=== PATIENT | male | born 1975 | race Caucasian/White ===

== ENCOUNTER 2017-12-10 16:15 | Emergency (ER) | payer SELFPAY ==
[~2017-12-10] VITALS: Ht 190.5 cm; Wt 108.9 kg
[~2017-12-10 16:15] MED LIST: A/B OTIC 54 MG/15 ML OT; AMOXIL 875 MG875 MG PO; FLONASE120 SPRAY/ INH
--- NOTE | 2017-12-10 17:45 | RADIOLOGY REPORT ---
EXAMINATION: XR CHEST CLINICAL INFORMATION: Right-sided chest pain. Assess for cardiopulmonary process. COMPARISON: Chest x-ray and right RIBS 10/22/2014. TECHNIQUE: Frontal and lateral views of the chest were obtained. FINDINGS: The lung alonzo are well expanded and appear clear bilaterally. The cardiac silhouette is normal. There are no pleural effusions or pneumothorax. The central pulmonary vasculature is normal. The hilar regions appear normal. There are mild degenerative changes in the thoracic spine. IMPRESSION: 1. There are no acute cardiopulmonary findings. 2. There are no acute osseous findings.
[2017-12-10] MEDS ORDERED: PRILOSEC OTC20 M1 PO (18:03)
--- NOTE | 2017-12-10 18:30 | ED GENERAL ADULT ---
History of Present Illness General Chief Complaint: General Adult Stated Complaint: DIZZY DOESNT FEEL RIGHT Source: patient, family Exam Limitations: no limitations Vital Signs & Intake/Output Vital Signs & Intake/Output Vital Signs Date Time Temp Pulse Resp B/P B/P Pulse O2 O2 Flow FiO2 Mean Ox Delivery Rate 12/11 2011 78 18 173/97 99 Room Air 12/10 1823 98.8 74 18 170/110 98 12/10 1817 84 168/109 12/10 1625 97.2 88 18 162/132 98 Room Air Allergies Coded Allergies: NO KNOWN ALLERGIES (05/28/12) Reconcile Medications Omeprazole Magnesium (Prilosec Otc) 20 MG TABLET. 1 TAB PO DAILY GI ( Reported) Triage Note: 42M REPORTS DIZZINESS AND "FEELING OFF" SINCE THIS WEEKEND, WORST SINCE FRIDAY AFTER WEEKEND OF MODERATE HOLIDAY DRINKING. FEELS FAINT, HAZY, FOGGY AND VERBALIZES DIFFICULTY CONCENTRATING. ON FRIDAY HE FELT LIKE HE ALMOST PASSED OUT, DENIES CP/SOB/PALP OR DIAPHORESIS/N/V/D. ALSO REPORTS INTERMITTENT RIGHT RIB PAIN AND LEFT NECK AREA DISCOMFORT IN LEFT SIDE OF NECK. FOCAL NEUROS INTACT AND 5/5 STRENGTH TO ALL EXTREMITIES. ABLE TO FOLLOW COMMANDS, DENIES HEADACHE. PERRLA AND EOM INTACT. +HYPERTENSIVE URGENCY AND FERNANDEZ ROPER NOTIFIED. DENIES NUMBNESS/PARASTHESIAS Triage Nurses Notes Reviewed? yes HPI: 42-year-old male presents with nonspecific symptoms of "feeling off". He reports having 7-8 beers on Friday and Friday and a couple of beers on Friday and Friday due to the long weekend. He reports he woke up one day and felt like the room was spinning and then resolved spontaneously. He reports just feeling off since then. He denies any chest pain or shortness of breath. I reviewed the triage note and I spoke with the nurse about patient's pain in the ribs and neck. He states that on Friday he bent down and felt a sharp pain in the rib for a second. He does not have any pain now and does not have any chest pain. He denies any neck pain to me. He thinks he has a swollen lymph node rather than any specific pain. He denies cough, phlegm, sore throat. Patient reports she has been previously diagnosed and treated for hypertension. He reports that his blood pressure normalized he had been taken off his blood pressure medication. He denies any chest pain, shortness of breath, exertional symptoms, diaphoresis, headache. Past History Travel History Traveled to [place] past 21 day No Medical History Any Pertinent Medical History? none Neurological: NONE EENT: NONE Cardiovascular: hypertension Respiratory: NONE Gastrointestinal: GERD Hepatic: NONE Renal: NONE Musculoskeletal: NONE Psychiatric: NONE Endocrine: NONE Blood Disorders: NONE Cancer(s): NONE PREP MANAGER/Reproductive: NONE Tetanus Vaccine: 01/05/11 Surgical History Surgical History: non-contributory Psychosocial History What is your primary language [place] Tobacco Use: Current Daily Use Daily Tobacco Use Amount/Type: => 5 Cigarettes daily Family History Hx Contributory? No Review of Systems Review of Systems Constitutional: Denies: chills, diaphoresis, fever. EENTM: Denies: blurred vision, double vision, visual changes. Respiratory: Denies: cough, hemoptysis, orthopnea. Cardiovascular: Denies: chest pain, edema, orthopena. GI: Denies: abdominal pain, bloating, constipation. Musculoskeletal: Denies: back pain, gout. Skin: Denies: cysts, change in skin color, change in hair/nails. Neurological/Psychological: Denies: anxiety, ataxia, cognitive dysfunction. Hematologic/Endocrine: Denies: bruising, bleeding. Physical Exam Physical Exam General Appearance: well developed/nourished, no apparent distress, alert, awake Head: atraumatic, normal appearance Eyes: Bilateral: PERRL, EOMI. Ears, Nose, Throat: normal pharynx, normal ENT inspection Neck: normal inspection, supple Respiratory: normal breath sounds, chest non-tender Cardiovascular: regular rate/rhythm Gastrointestinal: normal bowel sounds, soft, non-tender, no organomegaly Back: normal inspection Extremities: normal inspection, normal capillary refill Neurologic/Psych: no motor/sensory deficits, awake, alert, oriented x 3, normal gait Skin: intact Comments: Patient thinks he had swollen lymph node in the left side of the neck. No lymphadenopathy on my physical exam. No airway compromise. Normal throat. Perfect neurological exam. Perfect cerebellar exam. Perfect focus. Core Measures ACS in differential dx? No CVA/TIA Diagnosis: No Sepsis Present: No Sepsis Focused Exam Completed? No Progress Differential Diagnoses . Plan of Care: Orders Procedure Date/time Status TROPONIN LEVEL 12/10 1856 Complete MAGNESIUM 12/10 1856 Complete COMPREHENSIVE METABOLIC PANEL 12/10 1856 Complete CBC WITHOUT DIFFERENTIAL 12/10 1856 Complete URINE DRUG SCREEN FOR ER ONLY 12/10 162 Complete URINALYSIS 12/10 162 Complete MISTAKE 12/10 162 Active EKG 12/10 161 Active Laboratory Tests 12/10/17 1940: Urine Opiates Screen < 100, Methadone Screen < 40, Barbiturate Screen < 60, Ur Phencyclidine Scrn < 6.00, Amphetamines Screen < 100, U Benzodiazepines Scrn < 85, Urine Cocaine Screen < 50, Urine Cannabis Screen > 80.00 H, Urine Color YEL , Urine Clarity CLEAR, Urine pH 6.0, Ur Specific [place] 1.025, Urine Protein NEG, Urine Ketones NEG, Urine Nitrite NEG, Urine Bilirubin NEG, Urine Urobilinogen 1.0, Ur Leukocyte Esterase NEG, Ur Microscopic EXAM NOT REQUIRED, Urine Hemoglobin NEG, Urine Glucose NEG 12/10/17 1721: Anion Gap 9, Estimated GFR > 60, BUN/Creatinine Ratio 17.5, Glucose 84, Calcium 9.1, Magnesium 2.0, Total Bilirubin 0.7, AST 61 H, ALT 76 H, Alkaline Phosphatase 57, Troponin I < 0.01, Total Protein 7.6, Albumin 4.0, Globulin 3.6, Albumin/Globulin Ratio 1.1, CBC w Diff NO MAN DIFF REQ, RBC 5.39, MCV 92.8, MCH 31.5 H, MCHC 33.9, RDW 12.7, MPV 9.2, Gran % 65.5, Lymphocytes % 23.7, Monocytes % 9.1, Eosinophils % 1.2, Basophils % 0.5, Absolute Granulocytes 4.9, Absolute Lymphocytes 1.8, Absolute Monocytes 0.7 H, Absolute Eosinophils 0.1, Absolute Basophils 0 12/10/17 1636: Sodium Cancelled, Potassium Cancelled, Chloride Cancelled, Carbon Dioxide Cancelled, Anion Gap Cancelled, BUN Cancelled, Creatinine Cancelled, Estimated GFR Cancelled, BUN/Creatinine Ratio Cancelled, Glucose Cancelled, Calcium Cancelled, Magnesium Cancelled, Total Bilirubin Cancelled, AST Cancelled, ALT Cancelled, Alkaline Phosphatase Cancelled, Troponin I Cancelled, Total Protein Cancelled, Albumin Cancelled, Globulin Cancelled, Albumin/Globulin Ratio Cancelled, CBC w Diff Cancelled, WBC Cancelled, RBC Cancelled, Hgb Cancelled, Hct Cancelled, MCV Cancelled, MCH Cancelled, MCHC Cancelled, RDW Cancelled, Plt Count Cancelled, MPV Cancelled, Gran % Cancelled, Lymphocytes % Cancelled, Monocytes % Cancelled, Eosinophils % Cancelled, Basophils % Cancelled, Absolute Granulocytes Cancelled, Absolute Lymphocytes Cancelled, Absolute Monocytes Cancelled, Absolute Eosinophils Cancelled, Absolute Basophils Cancelled Initial ED EKG: see below Comments: EKG: Sinus, rate of 85, normal axis, normal intervals, no acute ST-T changes. Compared to the EKG from October 22, 2014: No significant change. Physical exam is quite benign. We will do a detailed evaluation. No significant change in EKG. Will check troponin. We will check CT scan of the brain. Patient has a history of hypertension we will treat him with oral antihypertensives. 2055 perfect repeat neurological exam. Patient continues to do well. Slight elevation of LFTs, likely to the patient's "partying" over the weekend, he will have his PCP recheck his labs. The patient is otherwise continued to do well. No vertigo at this time. Plan will be hydration at home, monitor blood pressure, diet changes, stop smoking and follow-up with PCP. Patient is comfortable and verbalizes understanding. Patient counseled against smoking for more than 3 minutes. "Chest pain" atypical sharp pain a few days ago, one short episode, PERC negative. Presentation consistent with PE or ACS. Blood pressure: No signs of hypertensive urgency or emergency, we will slowly bring it down. Patient is already improving. He will be started on antihypertensives and followed up with PCP. Departure Departure Time of Disposition: 2056 Disposition: HOME OR SELF CARE Condition: Stable Clinical Impression Primary Impression: Dizziness Secondary Impressions: Hypertension Referrals: Yunior Hernandez MD (PCP/Family) Additional Instructions: Watch her blood pressure closely twice a day. Return for any new or concerning symptoms. Return for chest pain, shortness of breath. Monitor blood pressure. Stop smoking likely discussed. Departure Forms: Customer Survey General Discharge Information Critical Care Note Critical Care Note Critical Care Time: non-applicable
--- NOTE | 2017-12-10 19:22 | CT SCAN REPORT ---
EXAMINATION: CT HEAD WITHOUT CONTRAST CLINICAL INFORMATION: Feeling off. Dizzy for 4 days. COMPARISON: None. TECHNIQUE: Contiguous axial imaging was performed from the skull base to vertex without intravenous administration of contrast. DLP: 620 mGy-cm. FINDINGS: There is no intracranial hemorrhage, large infarction, or mass lesion. There is no extra-axial collection. The ventricles are normal in size and configuration without evidence of hydrocephalus. The visualized paranasal sinuses and mastoid air cells are clear. IMPRESSION: No acute intracranial abnormality.
[2017-12-10 19:50] LABS: ABSOLUTE BASOPHIL COUNT 0 /CUMM (0.0-0.2); ABSOLUTE EOSINOPHIL COUNT 0.1 /CUMM (0.0-0.7); ABSOLUTE GRANULOCYTE CT 4.9 /CUMM (1.4-6.5); ABSOLUTE LYMPH COUNT 1.8 /CUMM (1.2-3.4); ABSOLUTE MONOCYTE COUNT 0.7 /CUMM (0.10-0.60); BASOPHIL % 0.5 % (0.0-2.0); EOSINOPHIL % 1.2 % (0-5); GRANULOCYTE % 65.5 % (42.2-75.2); MEAN CORPUSCULAR HGB 31.5 PG (27.0-31.0); MEAN CORPUSCULAR HGB CONC 33.9 G/DL (33.0-37.0); MEAN CORPUSCULAR VOLUME 92.8 FL (80.0-94.0); MEAN PLATELET VOLUME 9.2 FL (7.4-10.4); PLATELET COUNT 164 /CUMM (130-400); RBC DISTRIBUTION WIDTH 12.7 % (11.5-14.5); RED BLOOD CELL CT 5.39 /CUMM (4.70-6.10); WHITE BLOOD CELL COUNT 7.5 /CUMM (4.8-10.8)
[2017-12-10 20:12] VITALS: BP 173/97
[2017-12-10] MEDS ORDERED: AMLODIPINE BESYL5 M1 PO (20:59)
== END 2017-12-10 21:07 ==
LOC: ERH 16:15
PROVIDERS: Emergency Medicine
DX: R42 Dizziness and giddiness (principal); I10 Essential (primary) hypertension; F17.210 Nicotine dependence, cigarettes, uncomplicated; K21.9 Gastro-esophageal reflux disease without esophagitis; F10.10 Alcohol abuse, uncomplicated
CPT/HCPCS: 71046; 80307; 81003; 93005; 93010